=== PATIENT | male | born 1945 | race Native Hawaiian/Other Pacific Islander ===

== ENCOUNTER 2021-01-17 10:07 | Outpatient (CLI) | payer BC, OTHER | END 2021-01-17 21:13 | disposition home or self-care (01) | LOC: RAD 10:07 | PROVIDERS: ATTEND Nurse Practitioner Family | DX: E55.9 Vitamin D deficiency, unspecified (principal); E56.8 Deficiency of other vitamins; M05.79 Rheumatoid arthritis with rheumatoid factor of multiple sites without organ or systems involvement; R53.83 Other fatigue; Z79.891 Long term (current) use of opiate analgesic; M81.8 Other osteoporosis without current pathological fracture ==